=== PATIENT | female | born 1955 | race Caucasian/White ===

== ENCOUNTER → 2016-04-15 | Outpatient (CLI) | payer BC ==
[~2016-04-15] MED LIST: ALL180 PO; ALUMCHW2 PO; ASPI81TA28 PO; BIOTCAP2 PO; CARV12.5 PO; FAMO20TA11 PO; GLC500 PO; GLIM1TAB2 PO; LEVO100T PO; LISI-729 PO; MAGN400T6 PO; MULT-506 PO; OMEG10007 PO; PANT40TA PO; PARO10TA PO; PYRI100T4 PO; SIMV20TA2 PO; SPR25 PO
--- NOTE | 2016-04-15 09:45 | DIAGNOSTIC IMAGING REPORT ---
BILIARY ULTRASOUND CLINICAL HISTORY: R10.9 Abdominal pain COMPARISON STUDY: No previous studies for comparison. FINDINGS: The liver is of increased echogenicity, nonspecific finding most often seen in hepatic steatosis. No focal masses are visualized. There is no ductal dilatation. The common bile duct measures 6 mm. No gallstones are visualized. There is no gallbladder wall thickening. There is no right-sided hydronephrosis. The pancreas appears normal as visualized. IMPRESSION: 1. Increased hepatic echogenicity, and mild hepatomegaly. The findings likely indicate hepatic steatosis 2. Ultrasonographically normal gallbladder. No evidence of ductal dilatation. Electronically signed by: Asher Montes M.D. 04/15/2016 9:43 AM Dictated Date/Time: 04/15/2016 9:42 AM
== END | disposition home or self-care (01) ==
LOC: C.ULTRBC 08:45
PROVIDERS: ATTEND Family Medicine
DX: R10.9 Unspecified abdominal pain (principal)

== ENCOUNTER → 2016-06-28 | Outpatient (CLI) | payer BC ==
[2016-06-28 10:55] LABS: BASO % 0.6 %; BASO ABS # 0.06 K/uL (0-0.2); COMPLETE YES; EOS % 2.8 %; HEMATOCRIT 40.9 % (37-47); IG% 0.2 %; LYMPH % 29.6 %; LYMPH ABS # 2.88 K/uL (1.2-3.4); MEAN CELL VOLUME 94.9 fL (80-100); MEAN CORPUSCULAR HEMOGLOBIN 30.6 pg (25-34); MEAN CORPUSCULAR HGB CONC 32.3 g/dl (32-36); MEAN PLATELET VOLUME 11.5 fL (7.4-10.4); MONO % 9.5 %; NEUT % 57.3 %; PLATELET COUNT 383 K/uL (130-400); RED BLOOD COUNT 4.31 M/uL (4.2-5.4); WHITE BLOOD COUNT 9.74 K/uL (4.8-10.8)
[2016-06-28 11:24] LABS: ALT/SGPT 54 U/L (12-78); BLOOD UREA NITROGEN 18 mg/dl (7-18); BUN/CREATININE RATIO 13.9 (10-20); CARBON DIOXIDE 26 mmol/L (21-32); CHLORIDE 105 mmol/L (98-107); GLUCOSE 131 mg/dl (70-99); MAGNESIUM 1.9 mg/dl (1.8-2.4); POTASSIUM 4.5 mmol/L (3.5-5.1); SODIUM 139 mmol/L (136-145)
[2016-06-28 11:26] LABS: RATIO 30.1 mcg/mg (0-30.0)
[2016-06-28 11:32] LABS: CALCIUM 10.4 mg/dl (8.5-10.1)
[2016-06-28 11:34] LABS: ALB/GLOB RATIO 1.1 (0.9-2); ALKALINE PHOSPHATASE 69 U/L (45-117); AST/SGOT 24 U/L (15-37); THYROID STIMULATING HORMONE 0.929 uIu/ml (0.300-4.500)
[2016-06-28 11:50] LABS: ESTIMATED AVERAGE GLUCOSE 148 mg/dl; HA1C FLAG Normal (Normal)
== END | disposition home or self-care (01) ==
LOC: C.LABBC 08:29
PROVIDERS: ATTEND Family Medicine
DX: E11.22 Type 2 diabetes mellitus with diabetic chronic kidney disease (principal); N18.3 Chronic kidney disease, stage 3 (moderate); E03.9 Hypothyroidism, unspecified

== ENCOUNTER → 2016-08-05 | Outpatient (CLI) | payer BC | END | disposition home or self-care (01) | LOC: C.LABBC 12:06 | PROVIDERS: ATTEND Family Medicine | DX: M79.89 Other specified soft tissue disorders (principal) ==

== ENCOUNTER → 2016-08-15 | Outpatient (CLI) | payer BC ==
--- NOTE | 2016-08-15 09:30 | DIAGNOSTIC IMAGING REPORT ---
RIGHT KNEE 2 VIEWS HISTORY: M25.561 Right knee [id number] Right COMPARISON: None. FINDINGS: There is no fracture or dislocation. Soft tissues are unremarkable. No radiopaque foreign bodies. No knee effusion. Tiny marginal osteophytes at the medial and patellofemoral compartments. IMPRESSION: No fractures. Minimal degenerative change. Electronically signed by: Joce Arredondo M.D. 08/15/2016 9:29 AM Dictated Date/Time: 08/15/2016 9:28 AM
== END | disposition home or self-care (01) ==
LOC: C.RADBC 09:14
PROVIDERS: ATTEND Family Medicine
DX: M25.561 Pain in right knee (principal)

== ENCOUNTER → 2016-11-12 | Outpatient (CLI) | payer BC | END | disposition home or self-care (01) | LOC: C.PATHSPEC 10:21 | PROVIDERS: ATTEND Dentist Oral and Maxillofacial Pathology | DX: D10.39 Benign neoplasm of other parts of mouth (principal) ==

== ENCOUNTER → 2017-01-30 | Outpatient (CLI) | payer BC ==
[2017-01-30 10:49] LABS: ESTIMATED AVERAGE GLUCOSE 143 mg/dl; HA1C FLAG Normal (Normal)
[2017-01-30 11:02] LABS: ALKALINE PHOSPHATASE 64 U/L (45-117); ALT/SGPT 35 U/L (12-78); AST/SGOT 14 U/L (15-37); BLOOD UREA NITROGEN 26 mg/dl (7-18); BUN/CREATININE RATIO 19.8 (10-20); CALCIUM 9.4 mg/dl (8.5-10.1); CARBON DIOXIDE 26 mmol/L (21-32); CHLORIDE 106 mmol/L (98-107); CREATININE 1.32 mg/dl (0.60-1.20); GLUCOSE 116 mg/dl (70-99); HDL CHOLESTEROL 49 mg/dl; POTASSIUM 4.7 mmol/L (3.5-5.1); SODIUM 136 mmol/L (136-145)
[2017-01-30 11:04] LABS: CHOLESTEROL 147 mg/dl (0-200); LDL CHOLESTEROL CALCULATED 65 mg/dl; TRIGLYCERIDES 165 mg/dl (0-150); VERY LOW DENSITY LIPOPROT CALC 33 mg/dl
== END | disposition home or self-care (01) ==
LOC: C.LABBC 07:52
PROVIDERS: ATTEND Physician Assistant
DX: E11.9 Type 2 diabetes mellitus without complications (principal); I10 Essential (primary) hypertension; E78.5 Hyperlipidemia, unspecified

== ENCOUNTER → 2017-04-16 | Day surgery (SDC) | payer OTHER ==
[2017-03-28 14:27] VITALS: Ht 163.8 cm; Wt 124.5 kg
[~2017-04-16] VITALS: Ht 163.8 cm; Wt 124.5 kg
[~2017-04-16] MED LIST changes: -ALL180 PO; +B-COTAB18 PO; +BIOT1CAP8 PO; -BIOTCAP2 PO; +CALC-485 PO; +FEXO1TAB49 PO; +GLC/500 PO; -GLC500 PO; -GLIM1TAB2 PO; +GLIM2TAB2 PO; -LEVO100T PO; +LEVO100T7 PO; +LIDOCAINE HCL 2% 2 ML VIAL (20MG/ML) ONE; -MULT-506 PO; +MULTTAB58 PO; -OMEG10007 PO; +OMEG12006 PO; +PANT1TAB3 PO; -PANT40TA PO; +PROPOFOL IV EMULSION 10 MG/ML 20 ML VIAL IV ONE; -PYRI100T4 PO; +SPIR25TA PO; -SPR25 PO
--- NOTE | 2017-04-16 13:41 | Endo History and Physical ---
History & Physical Date of Service: Apr 16, 2017. Chief Complaint: Screening Referring Physician: Uriel GROVER History of Present Illness Hx of polyps for Colonoscopy Past Medical History Diabetes, Pacemaker, Reflux, Gynecological Problems, High Cholesterol, Sleep Apnea, Heart Disease, Hypertension, Implantable Defibrillator, Thyroid Disease Past Surgical History Hx Cardiac Surgery: Yes (PACE/DEFIB-2009) Hx Internal Defibrillator: Yes Hx Pacemaker: Yes Hx Abdominal Surgery: Yes (APPY, D&C, PARTIAL HYSTER, TUBAL LIGATION, OVARIAN CYST REMOVAL) Hx of Implantable Prosthesis: No Hx Post-Op Nausea and Vomiting: Yes Hx Cancer Surgery: No Hx Thoracic Surgery: No Hx Orthopedic: Yes (RT FOOT SURGERY) Hx Urinary Tract Surgery: No Family History Polyp Social History Smoking Status: Former Smoker Hx Substance Use: No Hx Alcohol Use: No Allergies Coded Allergies: Sulfa Antibiotics (Verified Allergy, Unknown, RASH, 03/28/17) Tetracycline (Verified Allergy, Unknown, RASH, 03/28/17) Codeine (Verified Adverse Reaction, Unknown, N/V, 03/28/17) Current Medications Reported Home Medications Medications Dose Route/Sig Max Daily Dose Days Date Category Holly Allergy (Fexofenadine Hcl) 180 Mg Tab 1 Tab PO DAILY PRN 03/28/17 Reported Vitamin B Complex (B-Complex Vitamins) 1 Tab Tab 1 Tab PO QAM 03/28/17 Reported Pepcid (Famotidine) 20 Mg Tab 20 Mg PO HS 03/28/17 Reported Aldactone (Spironolactone) 25 Mg Tab 25 Mg PO Q2D 03/28/17 Reported Zocor (Simvastatin) 20 Mg Tab 20 Mg PO QPM 03/28/17 Reported Paxil (Paroxetine Hcl) 10 Mg Tab 10 Mg PO QPM 03/28/17 Reported Protonix (Pantoprazole) 40 Mg Tab 40 Mg PO BID 03/28/17 Reported [place] 3 ([place]-3 Fatty Acids) 1 Cap Cap 1 Cap PO BID 03/28/17 Reported Multivitamin (Multiple Vitamin) 1 Tab Tab 1 Tab PO QPM 03/28/17 Reported Glucophage (Metformin Hcl) 500 Mg Tab 500 Mg PO BID 03/28/17 Reported Mag-Ox (Magnesium Oxide) 400 Mg Tab 400 Mg PO QPM 03/28/17 Reported Zestril (Lisinopril) 5 Mg Tab 5 Mg PO QAM 03/28/17 Reported Levothyroxine Sodium 100 Mcg Tab 1 Tab PO QAM 03/28/17 Reported Glimepiride 2 Mg Tab 1 Tab PO QPM 03/28/17 Reported Gaviscon (Aluminum Hydroxide-Mag Trisil) 1 Chw Chw 1 Dose PO DIRECTED PRN 03/28/17 Reported Coreg (Carvedilol) 12.5 Mg Tab 12.5 Mg PO BID 03/28/17 Reported Calcium 500 +D3 500-600 mg-Unit (Calcium Carbonate-Cholecalcife) 1 Tab Tab 1 Tab PO QPM 03/28/17 Reported Biotin 1 Mg Cap 1 Cap PO QAM 03/28/17 Reported Aspirin Ec (Aspirin) 81 Mg Tab 81 Mg PO HS 06/21/15 Reported Vital Signs Weight (Kilograms): 124.55 Height (Feet): 5 Height (Inches): 4.5 Date Time Temp Pulse Resp B/P (MAP) Pulse Ox O2 Delivery O2 Flow Rate FiO2 04/16/17 13:15 36.6 70 18 127/86 (100) 94 Room Air Physical Exam General Appearance: + obese Respiratory/Chest: Respiratory effort: no dyspnea Cardiovascular: Heart Auscultation: RRR Abdomen: Inspection & Palpation: soft Assessment and Plan Hx of polyps for colonoscopy
--- NOTE | 2017-04-16 14:04 | Discharge Instructions ---
Endoscopy Patient Instructions Date / Procedure(s) Performed Apr 16, 2017. Colonoscopy Allergy Information Coded Allergies: Sulfa Antibiotics (Verified Allergy, Unknown, RASH, 03/28/17) Tetracycline (Verified Allergy, Unknown, RASH, 03/28/17) Codeine (Verified Adverse Reaction, Unknown, N/V, 03/28/17) Discharge Date / Findings Apr 16, 2017. polyp Medication Instructions Restart Stopped Medication(s): resume meds Reported Home Medications Medications Dose Route/Sig Max Daily Dose Days Date Category Holly Allergy (Fexofenadine Hcl) 180 Mg Tab 1 Tab PO DAILY PRN 03/28/17 Reported Vitamin B Complex (B-Complex Vitamins) 1 Tab Tab 1 Tab PO QAM 03/28/17 Reported Pepcid (Famotidine) 20 Mg Tab 20 Mg PO HS 03/28/17 Reported Aldactone (Spironolactone) 25 Mg Tab 25 Mg PO Q2D 03/28/17 Reported Zocor (Simvastatin) 20 Mg Tab 20 Mg PO QPM 03/28/17 Reported Paxil (Paroxetine Hcl) 10 Mg Tab 10 Mg PO QPM 03/28/17 Reported Protonix (Pantoprazole) 40 Mg Tab 40 Mg PO BID 03/28/17 Reported [place] 3 ([place]-3 Fatty Acids) 1 Cap Cap 1 Cap PO BID 03/28/17 Reported Multivitamin (Multiple Vitamin) 1 Tab Tab 1 Tab PO QPM 03/28/17 Reported Glucophage (Metformin Hcl) 500 Mg Tab 500 Mg PO BID 03/28/17 Reported Mag-Ox (Magnesium Oxide) 400 Mg Tab 400 Mg PO QPM 03/28/17 Reported Zestril (Lisinopril) 5 Mg Tab 5 Mg PO QAM 03/28/17 Reported Levothyroxine Sodium 100 Mcg Tab 1 Tab PO QAM 03/28/17 Reported Glimepiride 2 Mg Tab 1 Tab PO QPM 03/28/17 Reported Gaviscon (Aluminum Hydroxide-Mag Trisil) 1 Chw Chw 1 Dose PO DIRECTED PRN 03/28/17 Reported Coreg (Carvedilol) 12.5 Mg Tab 12.5 Mg PO BID 03/28/17 Reported Calcium 500 +D3 500-600 mg-Unit (Calcium Carbonate-Cholecalcife) 1 Tab Tab 1 Tab PO QPM 03/28/17 Reported Biotin 1 Mg Cap 1 Cap PO QAM 03/28/17 Reported Aspirin Ec (Aspirin) 81 Mg Tab 81 Mg PO HS 06/21/15 Reported Provider Instructions Activity Restrictions - No exercising or heavy lifting for 24 hours. - Do not drink alcohol the day of the procedure. - Do not drive a car or operate machinery until the day after the procedure. - Do not make any important decisions or sign important papers in 24 hours after the procedure. Following Day: - Return to full activity which may include returning to work/school. Diet Start your diet with liquids and light foods (jello, soup, juice, toast). Then eat your usual diet if not nauseated. Treatment For Common After Affects For mild abdominal pain, bloating, or excessive gas: - Rest - Eat lightly - Lie on right side Follow-Up Information Follow-up with Uriel GROVER as scheduled Anesthesia Information What You Should Know You have had a procedure that required some medicine to reduce anxiety and discomfort. This treatment is called moderate sedation. After receiving the treatment, you may be sleepy, but you will be able to breathe on your own. The effects of the treatment may last for several hours. Follow these instructions along with Activity/Diet recommendations noted above: * Do NOT do anything where dizziness or clumsiness would be dangerous. * Rest quietly at home today, then you can be up and about tomorrow. * Have a responsible person stay with you the rest of today. * You may have had an I.V. today. If so, you may take the dressing off later today. Recommendations Call your doctor if: * Trouble breathing * Continuous vomiting for more than 24 hours * Temperature above 101 degrees * Severe abdominal pain or bloating * Pain not relieved by pain medicine ordered * There is increased drainage or redness from any incision * A large amount of rectal bleeding greater than 2-3 tablespoons. (If you had a polyp/s removed or have hemorrhoids, a small amount of blood - from the rectum is to be expected.) * You have any unanswered questions or concerns. IN THE EVENT OF A SERIOUS EMERGENCY, GO TO THE NEAREST EMERGENCY ROOM Your discharge instructions were prepared by provider Drew Milan. Patient Instructions Signature Page Barbara Dunn Patient (or Guardian) Signature/Date: I have read and understand the instructions given to me by my caregivers. Caregiver/RN/Doctor Signature/Date: The above-named patient and/or guardian has received patient instructions on this date. + Original Patient Signature Page (only) stays with chart. Please make copy for patient.
--- NOTE | 2017-04-16 14:07 | GI REPORT ---
Procedure Date: 04/16/2017 1:37 PM Procedure: Colonoscopy Indications: Personal history of colonic polyps Medicines: Propofol total dose 200 mg IV, Lidocaine 40 mg IV Complications: No immediate complications. Estimated Blood Loss: Estimated blood loss was minimal. Procedure: Pre-Anesthesia Assessment: - Prior to the procedure, a History and Physical was performed, and patient medications, allergies and sensitivities were reviewed. The patient's tolerance of previous anesthesia was reviewed. - The risks and benefits of the procedure and the sedation options and risks were discussed with the patient. All questions were answered and informed consent was obtained. After I obtained informed consent, the scope was passed under direct vision. Throughout the procedure, the patient's blood pressure, pulse, and oxygen saturations were monitored continuously. The Scope was introduced through the anus and advanced to the cecum, identified by appendiceal orifice and ileocecal valve. The colonoscopy was performed without difficulty. The patient tolerated the procedure well. The quality of the bowel preparation was good. Findings: A 3 mm polyp was found in the splenic flexure. The polyp was sessile. The polyp was removed with a cold biopsy forceps. Resection and retrieval were complete. Estimated blood loss was minimal. Impression: - One 3 mm polyp at the splenic flexure, removed with a cold biopsy forceps. Resected and retrieved. Recommendation: - Discharge patient to home (ambulatory). - Continue present medications. - Await pathology results. - Return to primary care physician PRN. Drew Milan M.D. Drew Milan MD 04/16/2017 2:07:29 PM This report has been signed electronically. Note Initiated On: 04/16/2017 1:37 PM I attest to the content of the Intraoperative Record and orders documented therein, exceptions below
--- NOTE | 2017-04-16 14:25 | Anesthesiology Progress Note ---
Anesthesia Post Op Note Date & Time Apr 16, 2017 at 14:25 Vital Signs Pain Intensity: 0 Vital Signs Past 12 Hours Date Time Temp Pulse Resp B/P (MAP) Pulse Ox O2 Delivery O2 Flow Rate FiO2 04/16/17 14:13 73 18 110/69 (83) 96 Room Air 04/16/17 13:15 36.6 70 18 127/86 (100) 94 Room Air Notes Mental Status: alert / awake / arousable, participated in evaluation Pt Amnestic to Procedure: Yes Nausea / Vomiting: adequately controlled Pain: adequately controlled Airway Patency, RR, SpO2: stable & adequate BP & HR: stable & adequate Hydration State: stable & adequate Anesthetic Complications: no major complications apparent
[2017-04-16 14:38] VITALS: BP 124/55; PULSE 73; O2SAT 96
== END | disposition home or self-care (01) ==
LOC: C.GI 12:21
PROVIDERS: ATTEND Internal Medicine Gastroenterology
DX: Z12.11 Encounter for screening for malignant neoplasm of colon (principal); Z86.010 Personal history of colon polyps; E11.9 Type 2 diabetes mellitus without complications; Z95.0 Presence of cardiac pacemaker; K21.9 Gastro-esophageal reflux disease without esophagitis; E03.9 Hypothyroidism, unspecified; E78.00 Pure hypercholesterolemia, unspecified; E66.01 Morbid (severe) obesity due to excess calories; E78.5 Hyperlipidemia, unspecified; G47.30 Sleep apnea, unspecified; I10 Essential (primary) hypertension; Z90.89 Acquired absence of other organs; Z90.711 Acquired absence of uterus with remaining cervical stump; Z87.891 Personal history of nicotine dependence; Z83.71 Family history of colonic polyps; Z88.2 Allergy status to sulfonamides; Z88.1 Allergy status to other antibiotic agents; Z88.5 Allergy status to narcotic agent; Z79.84 Long term (current) use of oral hypoglycemic drugs; Z79.82 Long term (current) use of aspirin; K63.5 Polyp of colon

== ENCOUNTER → 2017-06-03 | Outpatient (CLI) | payer OTHER ==
[~2017-06-03] MED LIST changes: -LIDOCAINE HCL 2% 2 ML VIAL (20MG/ML) ONE; -PROPOFOL IV EMULSION 10 MG/ML 20 ML VIAL IV ONE
[2017-06-03 13:31] LABS: HEMOGLOBIN A1C 6.7 % (4.5-5.6)
[2017-06-03 13:46] LABS: ALBUMIN 4.1 gm/dl (3.4-5.0); ALT/SGPT 39 U/L (12-78); BLOOD UREA NITROGEN 23 mg/dl (7-18); CALCIUM 9.6 mg/dl (8.5-10.1); CARBON DIOXIDE 29 mmol/L (21-32); CREATININE 1.33 mg/dl (0.60-1.20); GLUCOSE 103 mg/dl (70-99); POTASSIUM 4.5 mmol/L (3.5-5.1); SODIUM 138 mmol/L (136-145)
[2017-06-03 13:56] LABS: ALKALINE PHOSPHATASE 63 U/L (45-117); AST/SGOT 19 U/L (15-37); TOTAL PROTEIN 7.7 gm/dl (6.4-8.2)
[2017-06-03 14:57] LABS: CREATININE RANDOM URINE 65.3 mg/dl
== END | disposition home or self-care (01) ==
LOC: C.LABBC 09:46
PROVIDERS: ATTEND Nurse Practitioner Adult Health
DX: E11.22 Type 2 diabetes mellitus with diabetic chronic kidney disease (principal); N18.3 Chronic kidney disease, stage 3 (moderate); I12.9 Hypertensive chronic kidney disease with stage 1 through stage 4 chronic kidney disease, or unspecified chronic kidney disease; E03.9 Hypothyroidism, unspecified; E11.29 Type 2 diabetes mellitus with other diabetic kidney complication

== ENCOUNTER → 2017-10-01 | Outpatient (CLI) | payer OTHER ==
[2017-10-01 13:24] LABS: ALBUMIN 4.1 gm/dl (3.4-5.0); ALKALINE PHOSPHATASE 61 U/L (45-117); ALT/SGPT 46 U/L (12-78); AST/SGOT 24 U/L (15-37); BLOOD UREA NITROGEN 16 mg/dl (7-18); CALCIUM 9.7 mg/dl (8.5-10.1); CARBON DIOXIDE 26 mmol/L (21-32); CREATININE 1.12 mg/dl (0.60-1.20); GLUCOSE 108 mg/dl (70-99); POTASSIUM 4.6 mmol/L (3.5-5.1); SODIUM 139 mmol/L (136-145); TOTAL PROTEIN 7.7 gm/dl (6.4-8.2)
[2017-10-01 13:35] LABS: HEMOGLOBIN A1C 6.8 % (4.5-5.6)
== END | disposition home or self-care (01) ==
LOC: C.LABBC 09:23
PROVIDERS: ATTEND Nurse Practitioner Adult Health
DX: E78.5 Hyperlipidemia, unspecified (principal); I10 Essential (primary) hypertension; E11.9 Type 2 diabetes mellitus without complications

== ENCOUNTER 2019-01-05 12:48 | Inpatient (IN) ==
[2019-01-05] MEDS ORDERED: SODIUM CHLORIDE 0.9% 500 ML IV SCH (13:15)
--- NOTE | 2019-01-05 13:31 | XRay Report ---
XR chest 1V portable CLINICAL HISTORY: syncope ATYPICAL CHEST PAIN COMPARISON STUDY: No previous studies for comparison. FINDINGS: The heart is enlarged. There is a left subclavian dual-chamber central venous pacemaker pre sent. Interstitial prominence likely related to technical factors given the patient's large body habi tus. There are also increased markings in the retrocardiac portion of the left chest. Again this may be related to technical factors. If there is clinical concern over the presence of a pneumonia, a PA and lateral study should be obtained in follow-up..[ IMPRESSION: 1. Technically limited study secondary to patient's large body habitus 2. Cardiomegaly 3. Increased left lower lung zone markings possibly related to technical factors. If there is clinica l concern over the presence of a pneumonia, a PA and lateral study should be obtained in follow-up Electronically signed by: Asher Montes M.D. 01/05/2019 1:30 PM
[2019-01-05 13:54] LABS: Basophils # (auto) 0.05 K/uL (0-0.2); Basophils % (auto) 0.5 %; Eosinophils # (auto) 0.16 K/uL (0-0.5); Eosinophils % (auto) 1.6 %; Hematocrit (blood only) 42.9 % (37-47); Immature Granulocytes # (auto) 0.04 K/uL (0.00-0.02); Immature Granulocytes % (auto) 0.4 %; Lymphocytes # (auto) 2.36 K/uL (1.2-3.4); Lymphocytes % (auto) 22.9 %; Mean Corpuscular Hemoglobin 30.7 pg (25-34); Mean Corpuscular Hgb Conc 32.6 g/dL (32-36); Mean Corpuscular Volume 94.1 fL (80-100); Mean Platelet Volume 11.3 fL (7.4-10.4); Monocytes # (auto) 0.97 K/uL (0.11-0.59); Monocytes % (auto) 9.4 %; Neutrophils # (auto) 6.73 K/uL (1.4-6.5); Neutrophils % (auto) 65.2 %; Platelet Count 311 K/uL (130-400); RDW Standard Deviation 48.1 fL (36.4-46.3); Red Blood Count 4.56 M/uL (4.2-5.4); White Blood Count 10.31 K/uL (4.8-10.8)
[2019-01-05 14:07] LABS: Albumin Level 4.2 gm/dl (3.4-5.0); BUN Creatinine Ratio 11.6 (10-20); Calcium 10.6 mg/dl (8.5-10.1); Creatinine Clr Calc Pharmacy 63.7 ml/min; Est GFR (African American) 57.4; Est GFR (Non-African American) 49.6; INR 1.1 (0.9-1.1); Prothrombin Time 10.9 Seconds (9.0-12.0)
[2019-01-05 14:18] LABS: Albumin Globulin Ratio 1.3 (0.9-2); Bilirubin,Total 0.7 mg/dl (0.2-1); Globulin 3.3 gm/dl (2.5-4.0); Thyroid Stimulating Hormone 0.647 uIu/ml (0.300-4.500); Total Protein 7.5 gm/dl (6.4-8.2); Troponin I 0.019 ng/ml (0-0.045)
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
[2019-01-05] MEDS ORDERED: carvediloL 12.5 MG TAB PO ONE (15:23)
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
[2019-01-05 15:43] LABS: Appearance Urine Clear (Clear); Bilirubin Urine Negative (Negative); Blood Urine Negative (Negative); Color Urine Yellow; Glucose Urine UA Negative (Negative); Ketones Urine Negative (Negative); Leukocyte Esterase Urine Negative (Negative); Nitrite Urine Negative (Negative); Protein Urine Negative (Negative); Specific Gravity Urine 1.006 (1.000-1.030); Urobilinogen Urine Negative (Negative)
[2019-01-05] MEDS ORDERED: HYOSCYAMINE SULFATE 0.125 MG TAB PO PRN (16:11)
[2019-01-05] MEDS ORDERED: ALUMINUM HYDROXIDE PO PRN (16:11)
[2019-01-05] MEDS ORDERED: MUPIROCIN 2% OINT 22 GM TUBE INTNAS PRN (16:11)
[2019-01-05] MEDS ORDERED: [UNRECOGNIZED DRUG - OTHER] PO PRN (16:11)
[2019-01-05] MEDS ORDERED: SODIUM BICARBONATE PO PRN (16:11)
[2019-01-05] MEDS ORDERED: TRIAMCINOLONE ACET 0.1% CR 15 GM TUBE TOP PRN (16:11)
[2019-01-05] MEDS ORDERED: ACETAMINOPHEN 325 MG TAB PO PRN (16:11)
[2019-01-05] MEDS ORDERED: ONDANSETRON INJ 2 MG/ML 2 ML VIAL IV PRN (16:11)
[2019-01-05] MEDS ORDERED: ALGINIC ACID PO PRN (16:11)
[2019-01-05] MEDS ORDERED: GLIMEPIRIDE 2 MG TAB PO SCH (17:00)
[2019-01-05] MEDS ORDERED: SPIRONOLACTONE 25 MG TAB PO SCH (17:00)
[2019-01-05] MEDS: METFORMIN HCL ER 500 MG TABCR PO SCH (17:13)
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
[2019-01-05] MEDS: PANTOprazole 40 MG TAB PO SCH (20:52)
[2019-01-05] MEDS: HEPARIN SOD 5,000 UNIT/0.5 ML VIAL SQ SCH (20:53)
[2019-01-05] MEDS: carvediloL 12.5 MG TAB PO SCH (20:54)
[2019-01-05] MEDS: CHOLECALCIFEROL 1,000 UNITS TAB PO SCH (20:54)
[2019-01-05] MEDS: OMEGA-3 (PURIFIED FISH OIL) 1 GM CAP PO SCH (20:55)
[2019-01-05] MEDS ORDERED: SIMVASTATIN 20 MG TAB PO SCH (21:00)
[2019-01-05] MEDS ORDERED: CALCIUM 600MG + VIT D 400 IU TAB PO SCH (21:00)
[2019-01-05] MEDS ORDERED: FAMOTIDINE 20 MG TAB PO SCH (21:00)
[2019-01-05] MEDS ORDERED: PARoxetine HCl 10 MG TAB PO SCH (21:00)
[2019-01-06 05:31] LABS: Basophils # (auto) 0.06 K/uL (0-0.2); Basophils % (auto) 0.7 %; Eosinophils # (auto) 0.18 K/uL (0-0.5); Hematocrit (blood only) 43.2 % (37-47); Hemoglobin 13.9 g/dL (12.0-16.0); Immature Granulocytes # (auto) 0.01 K/uL (0.00-0.02); Immature Granulocytes % (auto) 0.1 %; Lymphocytes # (auto) 2.75 K/uL (1.2-3.4); Mean Corpuscular Hemoglobin 30.5 pg (25-34); Mean Corpuscular Hgb Conc 32.2 g/dL (32-36); Mean Corpuscular Volume 94.9 fL (80-100); Mean Platelet Volume 11.5 fL (7.4-10.4); Monocytes # (auto) 0.93 K/uL (0.11-0.59); Monocytes % (auto) 10.5 %; Neutrophils # (auto) 4.94 K/uL (1.4-6.5); Neutrophils % (auto) 55.7 %; Platelet Count 316 K/uL (130-400); RDW Coefficient of Variation 14.1 % (11.5-14.5); RDW Standard Deviation 48.4 fL (36.4-46.3); Red Blood Count 4.55 M/uL (4.2-5.4); White Blood Count 8.87 K/uL (4.8-10.8)
[2019-01-06] MEDS: HEPARIN SOD 5,000 UNIT/0.5 ML VIAL SQ SCH (05:52)
[2019-01-06 06:11] LABS: BUN Creatinine Ratio 12.7 (10-20); Calcium 10.1 mg/dl (8.5-10.1); Creatinine Clr Calc Pharmacy 58.7 ml/min; Est GFR (Non-African American) 45.7; Magnesium 1.9 mg/dl (1.8-2.4); Potassium 4.2 mmol/L (3.5-5.1)
[2019-01-06] MEDS ORDERED: LEVOTHYROXINE SODIUM 100 MCG TABLET PO SCH (06:30)
[2019-01-06] MEDS: METFORMIN HCL ER 500 MG TABCR PO SCH (08:43)
[2019-01-06] MEDS: CHOLECALCIFEROL 1,000 UNITS TAB PO SCH (08:44)
[2019-01-06] MEDS: PANTOprazole 40 MG TAB PO SCH (08:45)
[2019-01-06] MEDS: carvediloL 12.5 MG TAB PO SCH (08:45)
[2019-01-06] MEDS: OMEGA-3 (PURIFIED FISH OIL) 1 GM CAP PO SCH (08:45)
[2019-01-06] MEDS ORDERED: NON-FORMULARY MEDICATION (Biotin 1 MG) PO SCH (09:00)
[2019-01-06] MEDS ORDERED: LISINOPRIL 5 MG TAB PO SCH (09:00)
[2019-01-06] MEDS ORDERED: MAGNESIUM OXIDE 400 MG TAB PO SCH (09:00)
[2019-01-06] MEDS ORDERED: VITAMIN B COMPLEX TAB PO SCH (09:00)
[2019-01-06] MEDS ORDERED: MULTIVITAMIN TAB PO SCH (09:00)
[2019-01-06] MEDS ORDERED: PYRIDOXINE HCL 50 MG TAB PO SCH (09:00)
[2019-01-06] MEDS ORDERED: ASPIRIN 81 MG ECTAB PO SCH (09:00)
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
--- NOTE | 2019-01-06 13:00 | Cardiology Progress Note ---
Date of Service January 06, 2019 Assessment & Plan (1) Congestive cardiomyopathy: Will compensated without evidence of congestive heart failure pulmonary vascular congestion. Continue on carvedilol, spironolactone and lisinopril. (2) Cardiac arrest with ventricular fibrillation: No evident reversible cause for her arrest yesterday. She is not appear to have had an ischemic event. She had no symptoms of chest pain or ischemia is not known to have coronary disease. Electrolytes were normal including magnesium. She does not appear to be on offending medicines or new medications. She appears to be compliant with her usual outpatient medical regimen. No evidence of decompensated heart failure. I believe this was simply related to her underlying cardiomyopathy. She has had arrest secondary to this in the past. I did make an minor adjustment in her defibrillator settings to defibrillated with 31 joules initially and 41 joules subsequently. This was due to lack of conversion with 26 joules during her recent event. I do not believe she requires additional defibrillation threshold testing at this time. She may benefit from an increased dose of carvedilol. Blood pressure seems reasonable in this regard and I would advocate increasing her carvedilol to 25 milligrams at night and 12.5 in the morning for a week increasing to 25 milligrams twice daily in the absence of symptoms. Subjective This morning the patient is feeling well. She denies any sense of dizziness, palpitation or chest pain. He has been ambulatory around her room without additional symptoms. Review of Systems Review of Systems: Per HPI Physical Exam Physical Exam: She is alert and oriented x3. Mood affect appear normal. She answered all questions appropriately. Obese HEENT: Sclerae are anicteric. Pupils are equal and reactive to light and accommodation. Extraocular movements were intact. Neuro: Cranial nerves intact Neck: Examination of the submandibular region did not reveal any significant lymphadenopathy. Carotids are palpable bilaterally and free of bruits on auscultation. There was no evidence of jugular venous distention. The thyroid was not enlarged. Lungs: Lungs are clear to auscultation bilaterally. There are no rales wheezes or rhonchi. She has normal respiratory effort without use of accessory muscles. There is normal pulmonary excursion. Cardiac: The rhythm was regular with frequent ectopy. S1 and S2 were normal. There are no murmurs on examination. The PMI was not markedly displaced on palpation. Abdomen: The abdomen was soft and nontender. Extremities: Patient has bilateral radial pulses that are equal in intensity. There is no evidence cyanosis or clubbing. There was no evidence of significant peripheral edema bilaterally. Skin: There are no rashes noted on examination today. Results & Data Vital Signs (Past 12 Hours) Vital Signs Temp Pulse Pulse Resp BP BP Pulse Ox 01/06/19 11:09 36.6 C 74 18 127/84 139/68 93 01/06/19 10:03 70 01/06/19 07:35 36.6 C 74 18 127/84 93 01/06/19 02:54 36.7 C 63 16 133/79 94 Laboratory Results Abnormal Lab Results 01/05/19 01/05/19 01/05/19 13:35 13:35 13:35 WBC 10.31 RBC 4.56 Hgb 14.0 Hct 42.9 MCV 94.1 MCH 30.7 MCHC 32.6 RDW Std Deviation 48.1 H RDW Coeff of [place] 14.0 Plt Count 311 MPV 11.3 H Immature Gran % (Auto) 0.4 Neut % (Auto) 65.2 Lymph % (Auto) 22.9 [place] % (Auto) 9.4 Eos % (Auto) 1.6 Baso % (Auto) 0.5 Immature Gran # (Auto) 0.04 H Neut # (Auto) 6.73 H Lymph # (Auto) 2.36 [place] # (Auto) 0.97 H Eos # (Auto) 0.16 Baso # (Auto) 0.05 PT 10.9 INR 1.1 Sodium 138 Potassium 4.0 Chloride 105 Carbon Dioxide 25 Anion Gap 8.0 BUN 14 Creatinine 1.17 Est Cr Clr Drug Dosing 63.7 Est GFR ( Amer) 57.4 Est GFR (Non-Af Amer) 49.6 BUN/Creatinine Ratio 11.6 Glucose 92 POC Glucose Calcium 10.6 H Magnesium 2.0 Total Bilirubin 0.7 AST 16 ALT 33 Alkaline Phosphatase 54 Troponin I 0.019 Total Protein 7.5 Albumin 4.2 Globulin 3.3 Albumin/Globulin Ratio 1.3 TSH 0.647 Specimen Hemolysis Urine Color Urine Appearance Urine pH Ur Specific King Urine Protein Urine Glucose (UA) Urine Ketones Urine Blood Urine Nitrite Urine Bilirubin Urine Urobilinogen Ur Leukocyte Esterase 01/05/19 01/05/19 01/05/19 15:19 16:45 22:05 WBC RBC Hgb Hct MCV MCH MCHC RDW Std Deviation RDW Coeff of [place] Plt Count MPV Immature Gran % (Auto) Neut % (Auto) Lymph % (Auto) [place] % (Auto) Eos % (Auto) Baso % (Auto) Immature Gran # (Auto) Neut # (Auto) Lymph # (Auto) [place] # (Auto) Eos # (Auto) Baso # (Auto) PT INR Sodium Potassium Chloride Carbon Dioxide Anion Gap BUN Creatinine Est Cr Clr Drug Dosing Est GFR ( Amer) Est GFR (Non-Af Amer) BUN/Creatinine Ratio Glucose POC Glucose 86 Calcium Magnesium Total Bilirubin AST ALT Alkaline Phosphatase Troponin I 0.023 Total Protein Albumin Globulin Albumin/Globulin Ratio TSH Specimen Hemolysis Urine Color Yellow Urine Appearance Clear Urine pH 6.0 Ur Specific King 1.006 Urine Protein Negative Urine Glucose (UA) Negative Urine Ketones Negative Urine Blood Negative Urine Nitrite Negative Urine Bilirubin Negative Urine Urobilinogen Negative Ur Leukocyte Esterase Negative 01/06/19 01/06/19 01/06/19 05:09 05:09 07:23 WBC 8.87 RBC 4.55 Hgb 13.9 Hct 43.2 MCV 94.9 MCH 30.5 MCHC 32.2 RDW Std Deviation 48.4 H RDW Coeff of [place] 14.1 Plt Count 316 MPV 11.5 H Immature Gran % (Auto) 0.1 Neut % (Auto) 55.7 Lymph % (Auto) 31.0 [place] % (Auto) 10.5 Eos % (Auto) 2.0 Baso % (Auto) 0.7 Immature Gran # (Auto) 0.01 Neut # (Auto) 4.94 Lymph # (Auto) 2.75 [place] # (Auto) 0.93 H Eos # (Auto) 0.18 Baso # (Auto) 0.06 PT INR Sodium 141 Potassium 4.2 Chloride 107 Carbon Dioxide 27 Anion Gap 7.0 BUN 16 Creatinine 1.25 H Est Cr Clr Drug Dosing 58.7 Est GFR ( Amer) 53.0 Est GFR (Non-Af Amer) 45.7 BUN/Creatinine Ratio 12.7 Glucose 100 H POC Glucose 102 H Calcium 10.1 Magnesium 1.9 Total Bilirubin AST ALT Alkaline Phosphatase Troponin I Total Protein Albumin Globulin Albumin/Globulin Ratio TSH Specimen Hemolysis Urine Color Urine Appearance Urine pH Ur Specific [place] Urine Protein Urine Glucose (UA) Urine Ketones Urine Blood Urine Nitrite Urine Bilirubin Urine Urobilinogen Ur Leukocyte Esterase ECG Additional Comments: Telemetry did reveal 5 beats of nonsustained ventricular tachycardia. No other arrhythmias. PG Care Time/CCT Total # of Minutes Spent Total Time Spent with Patient: Total time spent is greater than 50% in coordination of care (as documented) at patient's floor/unit and/or counseling patient:
== END 2019-01-06 11:40 | disposition home or self-care (01) | DRG 309 ==
LOC: ED 12:48 → 2S 15:23